=== PATIENT | male | born 1980 | race Caucasian/White ===

== ENCOUNTER 2019-03-05 11:03 | Emergency (ER) | payer BC ==
[~2019-03-05 11:03] MED LIST: Sodium Chloride 0.9% 1,000 ML ONE
[2019-03-05] MEDS ORDERED: EPINEPHrine 1:10,000 1 MG/10 ML Syringe IV ONE ×4 (11:04)
[2019-03-05] MEDS ORDERED: Calcium Chloride 10% 1 GM/10 ML Syringe IV ONE (11:04)
[2019-03-05] MEDS ORDERED: fentaNYL 100 MCG/2 ML SDV IV ONE (11:04)
[2019-03-05] MEDS ORDERED: Rocuronium 50 MG/5 ML Vial IV ONE (11:04)
[2019-03-05] MEDS ORDERED: Lidocaine 2% 100 MG/5 ML Syringe IVPUSH ONE (11:04)
[2019-03-05] MEDS ORDERED: Midazolam 1 MG/ML 2 ML SDV IV ONE (11:04)
[2019-03-05] MEDS ORDERED: Sodium Bicarbonate 8.4% 50 MEQ/50 ML Syringe IV ONE (11:04)
[2019-03-05] MEDS ORDERED: Magnesium Sulfate (4.06 MEQ/ML) 1 GM/2 ML SDV IV ONE (11:04)
[2019-03-05] MEDS ORDERED: EPINEPHrine 1 MG/1 ML Amp ONE (11:10)
[2019-03-05] MEDS ORDERED: DOPamine/Dextrose 5%-Water 400 MG/250 ML BAG ONE (11:17)
[2019-03-05] MEDS ORDERED: Sodium Chloride 0.9% 1,000 ML ONE (11:23)
[2019-03-05] MEDS ORDERED: fentaNYL 100 MCG/2 ML SDV ONE (11:26)
[2019-03-05] MEDS ORDERED: Midazolam 1 MG/ML 2 ML SDV ONE (11:26)
[2019-03-05 11:57] LABS: CHLORIDE,CL 105 mEq/L (98-106); SODIUM,NA 144 mEq/L (136-145)
--- NOTE | 2019-03-05 12:39 | EDM.PDOC ---
ED HPI GENERAL MEDICAL PROBLEM - General Chief Complaint: CPR in Progress Stated Complaint: CPR in Progress Time Seen by Provider: 03/05/19 11:02 Source of Information: Reports: EMS, Family History Limitations: Reports: Other (CPR in progress) - History of Present Illness INITIAL COMMENTS - FREE TEXT/NARRATIVE: This patient is a 38 year old male that arrives to the ER via EMS/ALS. CPR is in progress. Pulseless. Airway I gel in place with ambu ventilation. The mother arrives same time the patient does. The mother reports that [place] and she was not with him. She reports the patient was feeding the cows. She went to check on him and found him not responding to her. Mother reports he was fine 15 minutes prior to her finding patient and he had no complaints at that time. 911 was called at 1002. When first responders from [facility] arrived at 1013, they found the patient laying on a four pedraza leaning backwards and arms back over his head. They reported the patient was blue around his lips and blue lips. They reported moving him to the ground and starting CPR. The ambulance from [place] responded to the farm. [facility] was called for intercept. Please see EMS report for prior to arrival treatment and rhythms. The mother does report patient has history of Marfan syndrome, [place] when in highschool, Valve replacement in highschool, currently taking Coumadin. The patient arrived to the ER at 1102. EMS reported in route patient was v-fib without pulse and torsades. EMS reported giving in route 7 shocks, 5 epi, 300 amiodarone, 150 amiodarone, amp bicarb, 2gm magnesium. Upon ER arrival, patient in Vfib. ACLS Protocol initiated, Onset: Today Onset Date: 03/05/19 Severity: Severe - Related Data Allergies Allergy/AdvReac Type Severity Reaction Status Date / Time Unable to Assess Allergy Unverified 03/05/19 12:42 Home Meds: Home Meds . [Unable to Verify Home Med List] 03/05/19 [History] ED ROS GENERAL - Review of Systems Review Of Systems: Unable To Obtain ED EXAM, CPR - Physical Exam Exam: See Below Limited By: Unresponsive, Other (CPR in Progress) General Appearance: Severe Distress (CPR in progress) Eye Exam: Bilateral Eye: Normal Inspection, PERRL (slowed, but reactive. ) Throat/Mouth: Other (Airway in place) Head: Atraumatic, Normocephalic Respiratory Chest: Other (Airway in place, equal breath sounds with ambu. ) Cardiovascular: Pulse with Compression, CPR In Progress, Other (Pulsesless arrival) GI/Abdominal Exam: Distended 0: Right Carotid, Left Carotid, Radial (R), Radial (L), Posterior-Tibial (R), Posterior-Tibial (L) Extremities: Mottled, Pallor Neurological: Unresponsive, Unresponsive Skin Exam: Cool (extremeties), Cyanosis (extremeties), Ecchymosis (RL abdomen), Mottled (distal extremeties) EKG INTERPRETATION EKG Date: 03/05/19 Time: 11:33 QRS: Wide ST-T: Normal Course - Vital Signs Last Recorded V/S: Last Vital Signs Temp Pulse Resp 12 03/05/19 11:03 BP Pulse Ox - Orders/Labs/Meds Labs: Laboratory Tests 03/05/19 03/05/19 03/05/19 Range/Units 11:39 11:39 11:39 WBC 10.0 (5.0-10.0) 10^3/uL RBC 4.49 L (4.50-6.00) 10^6/uL Hgb 13.5 L (14.0-18.0) g/dL Hct 43.1 (40.0-54.0) % MCV 96.0 H (82.0-94.0) fL MCH 30.1 (27.0-32.0) pg MCHC 31.3 L (33.0-38.0) g/dL RDW Coeff of Froy 12.8 (11.0-15.0) % Plt Count 172 (150-400) 10^3/uL Neut % (Auto) 60.6 (35-85) % Lymph % (Auto) 32.8 (10-55) % [place] % (Auto) 4.5 (0-16) % Eos % (Auto) 1.9 (0-5) % Baso % (Auto) 0.2 (0-3) % Neut # (Auto) 6.05 (1.80-7.00) 10^3/uL Lymph # (Auto) 3.27 (1.00-4.80) 10^3/uL [place] # (Auto) 0.45 (0.00-0.80) 10^3/uL Eos # (Auto) 0.19 (0.00-0.45) 10^3/uL Baso # (Auto) 0.02 10^3/uL PT 40.2 H (9.7-12.3) SEC INR 4.24 H* (0.92-1.18) Sodium 144 (136-145) mEq/L Potassium 3.4 L (3.5-5.0) mEq/L Chloride 105 (98-106) mEq/L Carbon Dioxide 25 (21-32) mmol/L BUN 12 (7-18) mg/dL Creatinine 1.2 (0.7-1.3) mg/dL Est Cr Clr Drug Dosing TNP Estimated GFR (MDRD) > 60 (>=60) mL/min Glucose 324 H* (75-99) mg/dL Calcium 9.0 (8.4-10.1) mg/dL Total Bilirubin 0.4 (0.0-1.0) mg/dL AST 57 H (15-37) U/L ALT 39 (12-78) U/L Alkaline Phosphatase 93 (46-116) U/L Lactate Dehydrogenase 314 H (100-190) U/L Creatine Kinase 262 H (35-232) U/L Troponin I 1.477 H (0.00-0.06) ng/mL Total Protein 5.4 L (6.4-8.2) g/dL Albumin 2.5 L (3.4-5.0) g/dL Meds: Medications Discontinued Medications Generic Name Dose Route Start Last Admin Trade Name Heather PRN Reason Stop Dose Admin Epinephrine HCl Confirm 03/05/19 11:10 Adrenalin Administered 03/05/19 11:11 Dose 4 mg .ROUTE .STK-MED ONE Fentanyl Confirm 03/05/19 11:26 Sublimaze Administered 03/05/19 11:27 Dose 100 mcg .ROUTE .STK-MED ONE Sodium Chloride Confirm 03/05/19 10:57 Normal Saline Administered 03/05/19 10:58 Dose 1,000 mls @ as directed .ROUTE .STK-MED ONE Dopamine HCl/Dextrose Confirm 03/05/19 11:17 Dopamine In D5w 400 Mg/250 Ml Administered 03/05/19 11:18 Dose 400 mg in 250 mls @ as directed .ROUTE .STK-MED ONE Sodium Chloride Confirm 03/05/19 11:23 Normal Saline Administered 03/05/19 11:24 Dose 1,000 mls @ as directed .ROUTE .STK-MED ONE Midazolam HCl Confirm 03/05/19 11:26 Versed 1 Mg/Ml Administered 03/05/19 11:27 Dose 6 mg .ROUTE .STK-MED ONE - Re-Assessments/Exams Free Text/Narrative Re-Assessment/Exam: 03/05/19 11:52 [facility] was contacted prior to patient arrival. Given a weather go and fixed wing in route for patient. Please see Julio charting for times and other charting, that is scanned into the chart. Rebekah activated physician at time of patient arrival. In ER patient 12 shocks, 10 epi, 100 lidocaine, bicarb , calcium, magnesium given. Total code time was approximately 65 minutes of critical care time with this patient. Discussed with Julio, on final pulse check he did have a pulse. Prior to this, no pulse. ET tube placed by electrical engineering manager Kehinde 7.5 at 25. Good breath sounds bilaterally. EKG was then done. BP checked, which is hypertensive, this could be due to epi dosing. The EKG shows no ST elevations but wide complex. Do not have labs resulted, still pending, available after patient has left the facility. The patient temperature is 94.6, already hypothermic, will not warm. Rocuronium given during intubation. After intubation Versed and Fentanyl given. Flight has arrived just at time of obtaining a pulse. No time after resuscitation. to obtain CXR or head CT. It is more important to load patient onto flight stretcher and transfer the patient to higher level of care. Julio discussed the patient report with intensivits at [facility] who has accepted the patient. Patient is discharged and fly to [facility]. Spoke to mother on several occasions about patient condition. Mother also on a couple of occasions, including final pulse check came to bedside to touch and talk to her son. At transfer explained to mother the transfer and the patient current condition. A member from [facility] is going to drive the patient mother to [facility]. Departure - Departure Time of Disposition: 11:52 Disposition: DC/Tfer to Acute Hospital 02 Condition: Critical Clinical Impression: Cardiac arrest - Discharge Information *PRESCRIPTION DRUG MONITORING PROGRAM REVIEWED*: No *COPY OF PRESCRIPTION DRUG MONITORING REPORT IN PATIENT ELROY: No Referrals: PCP,Unknown [Primary Care Provider] - Forms: ED Department Discharge - Assessment/Plan Plan: PLEASE SEE RN NOTE FOR PFSH/although unable to obtain. Risk vs Benefits of transfer explained to mother. She accepts risk of transfer. Patient being trnasferred via ambulance to airport, then fixed wing to [facility]. The risk of transfer are mvc, airplane crash, cardiac arrest in route, pulseless arrest, , brain . The benefits of transfer are higher level of care, ICU, cardiac intervention, specialist. The benefits of staying in [place]. The risk of staying in [place] is no ventulator , , no specialist, cardiac arrest.
== END 2019-03-05 11:52 ==
LOC: CC.ED 11:03
DX: I46.9 Cardiac arrest, cause unspecified (principal); I25.2 Old myocardial infarction; Z79.01 Long term (current) use of anticoagulants
CPT/HCPCS: 31500; 36415; 36680; 80053; 82550; 83615; 84484; 85025; 85610; 92950; 93005; 96374; 96375; 99291-25; J0171; J2001; J2250; J3010; J3475